=== PATIENT | male | born 1970 | race Two or more races ===

== ENCOUNTER 2020-10-22 12:25 | Emergency (ER) | payer OTHER ==
[~2020-10-22] VITALS: Ht 190.5 cm; Wt 104.3 kg
== END 2020-10-22 16:22 | disposition home or self-care (01) ==
LOC: ER 12:25
DX: B34.9 Viral infection, unspecified (principal); U07.1 COVID-19

== ENCOUNTER 2020-10-24 10:43 | Inpatient (IN) | payer OTHER ==
[~2020-10-24] VITALS: Ht 190.5 cm; Wt 104.3 kg
[2020-10-25] MEDS ORDERED: PREDNISOLO15 MG/5 ML (16:13)
[2020-10-25] MEDS ORDERED: TRIAMCINOLONE A15 G1 (16:13)
[2020-11-04] MEDS ORDERED: VITAMIN C500 M1 PO (11:25)
[2020-11-04] MEDS ORDERED: MEDROLPACK PO (11:25)
[2020-11-04] MEDS ORDERED: MELATONIN5 M2 PO (11:25)
[2020-11-04] MEDS ORDERED: VITAMIN D3125 MC2 PO (11:25)
[2020-11-04] MEDS ORDERED: ZINC SULFATE50 M1 PO (11:25)
== END 2020-11-04 11:28 | disposition home or self-care (01) | DRG 207 ==
LOC: ER 10:43 → MEDJ 10-25 10:32
PROVIDERS: ADMIT Internal Medicine; ATTEND Internal Medicine
PROC: 5A1955Z Respiratory Ventilation, Greater than 96 Consecutive Hours (ICD-10-PCS; principal; 2020-10-25)
PROC: 8E0ZXY6 Isolation (ICD-10-PCS; 2020-10-25)
PROC: 4A033R1 Measurement of Arterial Saturation, Peripheral, Percutaneous Approach (ICD-10-PCS; 2020-10-25)
PROC: XW033E5 Introduction of Remdesivir Anti-infective into Peripheral Vein, Percutaneous Approach, New Technology Group 5 (ICD-10-PCS; 2020-10-25)
PROC: 4A12X4Z Monitoring of Cardiac Electrical Activity, External Approach (ICD-10-PCS; 2020-10-26)
DX: U07.1 COVID-19 (principal); J12.82 Pneumonia due to coronavirus disease 2019; R09.02 Hypoxemia; Z28.82 Immunization not carried out because of caregiver refusal; F17.290 Nicotine dependence, other tobacco product, uncomplicated

== ENCOUNTER 2021-01-27 11:00 | Outpatient (CLI) | payer OTHER ==
[~2021-01-27 11:00] MED LIST: MEDROLPACK PO; MELATONIN5 M2 PO; PREDNISOLO15 MG/5 ML; TRIAMCINOLONE A15 G1; VITAMIN C500 M1 PO; VITAMIN D3125 MC2 PO; ZINC SULFATE50 M1 PO
== END 2021-01-27 11:15 | disposition home or self-care (01) ==
LOC: RAD 11:00
PROVIDERS: ATTEND General Practice
DX: M17.11 Unilateral primary osteoarthritis, right knee (principal); M25.561 Pain in right knee; E11.22 Type 2 diabetes mellitus with diabetic chronic kidney disease; B35.1 Tinea unguium; E78.1 Pure hyperglyceridemia

== ENCOUNTER 2022-01-03 14:30 | Emergency (ER) | payer OTHER ==
[~2022-01-03] VITALS: Ht 190.5 cm; Wt 108.9 kg
== END 2022-01-03 22:44 | disposition home or self-care (01) ==
LOC: ER 14:30
DX: S02.31XA Fracture of orbital floor, right side, initial encounter for closed fracture (principal); Y33.XXXA Other specified events, undetermined intent, initial encounter; Y93.9 Activity, unspecified; Y92.9 Unspecified place or not applicable; Y99.9 Unspecified external cause status